=== PATIENT | female | born 1995 | race Caucasian/White ===

== ENCOUNTER 2021-02-15 09:30 | Inpatient (IN) | payer BC, OTHER ==
[~2021-02-15] VITALS: Ht 160 cm; Wt 68.0 kg
[2021-02-15 10:02] LABS: BASOPHILS % (AUTO) 0.6 % (0.0-5.0); EOSINOPHILS % (AUTO) 1.9 % (0.0-8.0); HEMATOCRIT 40.4 % (36-48); MEAN CORPUSCULAR HEMOGLOBIN 29.6 pg (27.0-33.0); MEAN CORPUSCULAR HGB CONC 34.2 g/dL (32.0-36.0); MEAN CORPUSCULAR VOLUME 86.5 fL (79-99); MONOCYTES % (AUTO) 8.3 % (3.0-13.0); NEUTROPHILS % (AUTO) 75.8 % (40.0-77.0); PLATELET COUNT (AUTO) 257 K/uL (130-400); RED BLOOD CELL COUNT(AUTO) 4.67 MIL/uL (4.00-5.50); RED CELL DISTRIBUTION WIDTH 13.3 % (11.0-15.5)
[2021-02-15 10:07] LABS: APPEARANCE,URINE Cloudy (CLEAR); BILIRUBIN,URINE Negative (NEGATIVE); COLOR,URINE Yellow (YELLOW); GLUCOSE, URINE (UA) Negative (NEGATIVE); HCG,QUAL RESULT NEGATIVE (NEGATIVE); KETONES,URINE 15 mg/dL (NEGATIVE); LEUKOCYTE ESTERASE ,URINE Trace (NEGATIVE); NITRATE,URINE Negative (NEGATIVE); OCCULT BLOOD,URINE Negative (NEGATIVE); PH,URINE 6.5 (5.0-8.0); PROTEIN,URINE Negative (NEGATIVE); UROBILINOGEN,URINE 0.2 mg/dL (0.2-1.0)
[2021-02-15 10:20] LABS: ALBUMIN 4.2 g/dL (3.5-5.0); BILIRUBIN,TOTAL 0.5 mg/dL (0.2-1.0); CREATININE 1.2 mg/dL (0.5-1.5); POTASSIUM 3.8 mmol/L (3.5-5.1); TOTAL PROTEIN, SERUM 8.3 g/dL (6.0-8.3)
[2021-02-15 10:29] LABS: BACTERIA,URINE Few /HPF (None Seen); RBC,URINE None Seen /HPF (0-1); SQUAMOUS EPITHELIAL CELL,UR 30-50 /HPF (0-2); WBC,URINE 0-1 /HPF (0-1)
[2021-02-15] MEDS ORDERED: 0.9%NACL 1000ML 1,000 ML IV ONE ×2 (10:43→16:03)
[2021-02-15] MEDS ORDERED: IOHEXOL-350 75 ML VIAL IV ONE (11:18)
[2021-02-15] MEDS: PANTOPRAZOLE 40 MG TAB DR PO SCH (12:45)
[2021-02-15] MEDS ORDERED: KCL 20 MEQ ERTAB PO PRN (12:45)
[2021-02-15] MEDS ORDERED: GLUCAGON 1MG KIT 1 MG ML IM PRN (12:45)
[2021-02-15] MEDS ORDERED: LIDOCAINE HCL-MPF 1% 2ML VIAL IV PRN ×2 (12:45)
[2021-02-15] MEDS ORDERED: 0.9%NACL 1000ML 1,000 ML IV SCH (12:45)
[2021-02-15] MEDS ORDERED: POTASSIUM CHLORIDE 20MEQ/100ML 100 ML IV PRN ×2 (12:45)
[2021-02-15] MEDS ORDERED: ACETAMINOPHEN 325 MG TAB PO PRN (12:45)
[2021-02-15] MEDS ORDERED: POTASSIUM CHLORIDE 10% ELIXIR 20 MEQ/15 ML UDCUP PO PRN (12:45)
[2021-02-15] MEDS ORDERED: DEXTROSE 50%-WATER 50 ML DISP.SYRIN IV PRN (12:45)
[2021-02-15] MEDS ORDERED: MAGNESIUM 2GM PREMIX 50ML 50 ML IV PRN (12:45)
[2021-02-15 13:02] LABS: ALBUMIN 4.3 g/dL (3.5-5.0); BILIRUBIN,DIRECT 0.1 mg/dL (0.0-0.3); BILIRUBIN,TOTAL 0.5 mg/dL (0.2-1.0); MAGNESIUM 1.4 mg/dL (1.80-2.40); TOTAL PROTEIN, SERUM 7.9 g/dL (6.0-8.3)
[2021-02-15] MEDS ORDERED: PANTOPRAZOLE 40 MG TAB DR ONE (13:47)
[2021-02-15] MEDS ORDERED: MORPHINE 2 MG SYG ONE (13:47)
[2021-02-15] MEDS ORDERED: ONDANSETRON 4MG INJ ONE (13:47)
[2021-02-15 17:30] VITALS: BP 132/77
[2021-02-15] MEDS ORDERED: DOCUSATE SODIUM 100 MG CAP PO SCH (18:45)
[2021-02-15] MEDS ORDERED: POLYETHYLENE GLYCOL 3350 17 GM POWD.PACK PO PRN (18:45)
[2021-02-15 20:06] VITALS: BP 129/75
[2021-02-15] MEDS: ONDANSETRON 4MG INJ IVP PRN (20:30)
[2021-02-15] MEDS: MORPHINE 2 MG SYG IVP PRN (20:50)
[2021-02-16 00:40] VITALS: BP 107/52
[2021-02-16 05:06] LABS: HEMATOCRIT 39.3 % (36-48); MEAN CORPUSCULAR HEMOGLOBIN 28.9 pg (27.0-33.0); MEAN CORPUSCULAR HGB CONC 32.6 g/dL (32.0-36.0); MEAN CORPUSCULAR VOLUME 88.7 fL (79-99); RED BLOOD CELL COUNT(AUTO) 4.43 MIL/uL (4.00-5.50); RED CELL DISTRIBUTION WIDTH 13.3 % (11.0-15.5); WHITE BLOOD COUNT (AUTO) 4.8 K/uL (4.8-10.8)
[2021-02-16 05:15] VITALS: BP 114/68
[2021-02-16 05:22] LABS: ALBUMIN 3.6 g/dL (3.5-5.0); BILIRUBIN,TOTAL 0.5 mg/dL (0.2-1.0); CREATININE 1.3 mg/dL (0.5-1.5); POTASSIUM 3.9 mmol/L (3.5-5.1); TOTAL PROTEIN, SERUM 7.4 g/dL (6.0-8.3)
[2021-02-16] MEDS: ONDANSETRON 4MG INJ IVP PRN (06:32)
[2021-02-16] MEDS ORDERED: ENOXAPARIN SODIUM 40 MG/0.4 ML SYRINGE SQ SCH (09:00)
[2021-02-16 09:52] VITALS: BP 107/61
[2021-02-16 11:37] VITALS: BP 130/77
[2021-02-16] MEDS: METOCLOPRAMIDE 10 MG/2 ML VIAL IVP SCH ×2 (12:03→17:00)
[2021-02-16] MEDS: PANTOPRAZOLE 40 MG TAB DR PO SCH (12:05)
[2021-02-16] MEDS: MORPHINE 2 MG SYG IVP PRN (14:15)
[2021-02-16] MEDS ORDERED: METO10TA41 PO (15:50)
[2021-02-16] MEDS ORDERED: ONDA4TAB4 PO (15:50)
== END 2021-02-16 18:10 | disposition home or self-care (01) | DRG 392 ==
LOC: EDH 09:30 → EDHIP 12:25 → 3CH 17:35
PROVIDERS: ADMIT Internal Medicine Pulmonary Disease; ATTEND Internal Medicine Pulmonary Disease
DX: R10.9 Unspecified abdominal pain (principal); N13.30 Unspecified hydronephrosis; N83.8 Other noninflammatory disorders of ovary, fallopian tube and broad ligament; R79.89 Other specified abnormal findings of blood chemistry; F41.9 Anxiety disorder, unspecified; E83.52 Hypercalcemia; K80.20 Calculus of gallbladder without cholecystitis without obstruction; Z20.822 Contact with and (suspected) exposure to COVID-19; K59.00 Constipation, unspecified; Z86.19 Personal history of other infectious and parasitic diseases; Z80.49 Family history of malignant neoplasm of other genital organs; Z80.41 Family history of malignant neoplasm of ovary; Z80.3 Family history of malignant neoplasm of breast; Z87.820 Personal history of traumatic brain injury
CPT/HCPCS: 36415; 71275; 74177; 76700; 76856; 80053; 80061; 80076; 81001; 81025; 82378; 83690; 83735; 85025; 85027; 86304; 87426; 93005; G0378; J1650; J2405; J2765; J3475; J7030; Q9967; U0003